=== PATIENT | female | born 1970 | race Caucasian/White ===

== ENCOUNTER 2024-04-24 19:13 | Inpatient (IN) | payer OTHER ==
[~2024-04-24] VITALS: Ht 165.1 cm; Wt 78.6 kg
[2024-04-24] MEDS: NALOXONE HCL 0.4MG/ML 1ML VIAL IV ONE ×3 (19:58→21:11)
[2024-04-24] MEDS: SODIUM CHLORIDE 0.9% 1000ML BAG (SEPSIS BOLUS) IV ONE (20:06)
[2024-04-24] MEDS: PIPERACILLIN/TAZO 3.375G/50ML 50 ML IV ONE (20:11)
[2024-04-24 20:13] LABS: BASOPHILS % 0.2 % (0.0-2.0); EOSINOPHILS % 0.1 % (0.0-5.0); HEMATOCRIT. 40.9 % (36.0-48.0); HEMOGLOBIN. 13.1 g/dL (12.0-16.0); LYMPHOCYTES % 12.3 % (20.0-50.0); MEAN CORPUSCULAR HEMOGLOBIN 27.9 pg (28.0-32.0); MEAN CORPUSCULAR HGB CONC 31.9 g/dL (31.0-37.0); MEAN CORPUSCULAR VOLUME 87.4 fL (81.0-99.0); MEAN PLATELET VOLUME 9.9 fl (7.4-10.4); MONOCYTES % 6.7 % (2.0-8.0); NEUTROPHILS % 80.7 % (40.0-76.0); PLATELET 231 x1000/uL (130-400); RED BLOOD CELL COUNT 4.68 mill/uL (4.2-5.4); RED CELL DISTRIBUTION WIDTH 16.6 % (11.6-14.6); WHITE BLOOD COUNT 9.2 x1000/uL (4.5-11.0)
[2024-04-24 20:20] LABS: CHLORIDE 113 mEq/L (98-107); POTASSIUM 3.8 mEq/L (3.5-5.1); SODIUM 146 mEq/L (136-145)
[2024-04-24 20:21] LABS: CALCIUM 9.3 mg/dL (8.7-10.4); CARBON DIOXIDE 21 mEq/L (21-32)
[2024-04-24] MEDS: VANCOMYCIN 1G PREMIX 200 ML IV ONE (20:21)
[2024-04-24 20:24] LABS: PROTHROMBIN TIME 11.1 sec (9.6-11.0)
[2024-04-24 20:26] LABS: GLUCOSE 175 mg/dL (70-105); UREA NITROGEN BLOOD 16 mg/dL (9-23)
[2024-04-24 20:27] LABS: ETHANOL BLOOD < 10 mg/dL (<10); HCG SCREEN NEGATIVE
[2024-04-24 20:28] LABS: ALANINE AMINOTRANSFERASE 99 IU/L (10-49); ASPARTATE AMINOTRANSFERASE 138 IU/L (<34); BILIRUBIN TOTAL 0.4 mg/dL (0.1-1.0)
[2024-04-24 20:29] LABS: PROTEIN TOTAL 6.5 g/dL (6.0-8.3)
[2024-04-24 20:32] LABS: TROPONIN I HIGH SENSITIVITY 172 ng/L (3.0-34)
[2024-04-24 22:04] VITALS: PULSE 99; RESP 18; O2SAT 96
[2024-04-24] MEDS: ETOMIDATE 2MG/ML 10ML VIAL IV ONE (22:16)
[2024-04-24] MEDS: ROCURONIUM BROMIDE 10MG/ML VIAL 5ML IV ONE (22:17)
[2024-04-24 22:28] LABS: BG BASE EXCESS 1.3 mmol/L (-2.0-3.0); BG FRACTION INSPIRED OXYGEN 100; BG HCO3 ACT 25.4 mmol/L (21.0-28.0); BG PCO2 38.3 mmHg (32.0-45.0); BG PH 7.439 (7.350-7.450); BG PO2 83.8 mmHg (83.0-108.0); BG SAMPLE SITE RIGHT RADIAL; BG VENT MODE VENT - AC
[2024-04-24 23:20] VITALS: RESP 18
[2024-04-24] MEDS ORDERED: NOREPINEPHRINE 8MG/250ML PMX 250 ML IV PRN (23:45)
[2024-04-24] MEDS: IPRATROPIUM/ALBUTEROL 0.5-3(2.5)MG/3ML NEB HHN SCH (23:45)
[2024-04-24] MEDS ORDERED: MIDAZOLAM 100MG/100ML PMX 100 ML IV PRN (23:45)
[2024-04-24] MEDS ORDERED: DOCUSATE SODIUM 100MG CAPSULE PO PRN (23:45)
[2024-04-24] MEDS ORDERED: SODIUM CHLORIDE 0.45% 1,000 ML IV SCH (23:45)
[2024-04-24] MEDS ORDERED: GUAIFENESIN 200MG/10ML SUGAR FREE UDC PO PRN (23:45)
[2024-04-24] MEDS ORDERED: ACETAMINOPHEN 325MG TABLET PO PRN (23:45)
[2024-04-24] MEDS ORDERED: LORAZEPAM 2MG/ML INJ IV PRN (23:45)
[2024-04-24 23:54] VITALS: PULSE 128; RESP 25; O2SAT 95
[2024-04-25] VITALS (92 sets, daily range): BP systolic 114–202; BP diastolic 54–139; PULSE 97–136; RESP 13–26; TEMP 36.78072–37.94748; O2SAT 98–100
[2024-04-25] MEDS ORDERED: DEXTROSE 50% WATER 50ML SYRINGE IV PRN (01:15)
[2024-04-25] MEDS: HYDRALAZINE 20MG/ML VIAL IV PRN (01:51)
[2024-04-25] MEDS: PIPERACILLIN/TAZO 3.375G/50ML 50 ML IV SCH (01:51)
[2024-04-25] MEDS: DEXT 5%/0.45% NACL 1000ML 1,000 ML IV SCH (01:52)
[2024-04-25 02:35] LABS: CLARITY URINE CLOUDY (CLEAR); COLOR URINE DARK YELLOW (YELLOW); GLUCOSE URINE 1+ (NEGATIVE); KETONES URINE TRACE (NEGATIVE); LEUKOCYTE ESTERASE URINE NEGATIVE (NEGATIVE); NITRITE URINE NEGATIVE (NEGATIVE); OCCULT BLOOD URINE 2+ (NEGATIVE); PH URINE 5.5 (4.5-8.0); PROTEIN URINE 3+ (NEGATIVE); SPECIFIC GRAVITY URINE 1.031 (1.005-1.030)
[2024-04-25 02:47] LABS: *AMPHETAMINES SCREEN URINE NEGATIVE (NEGATIVE); *BARBITURATES SCREEN URINE NEGATIVE (NEGATIVE); *BENZODIAZEPINES SCREEN URINE NEGATIVE (NEGATIVE); *COCAINE SCREEN URINE NEGATIVE (NEGATIVE)
[2024-04-25 02:48] LABS: CANNABINOID URINE SCREEN NEGATIVE (NEGATIVE); ECSTASY MDMA SCREEN URINE NEGATIVE (NEGATIVE); METHADONE URINE SCREEN NEGATIVE (NEGATIVE); OPIATES URINE SCREEN NEGATIVE (NEGATIVE); PHENCYCLIDINE URINE SCREEN NEGATIVE (NEGATIVE)
[2024-04-25 02:52] LABS: HYALINE CASTS URINE 0-5 /lpf; WHITE BLOOD CELL CASTS URINE 0-5 /lpf
[2024-04-25 02:53] LABS: BACTERIA URINE TRACE; SQUAMOUS EPITHELIAL CELL URINE FEW /lpf (RARE/1+); WBC URINE 0-2 /hpf (0-2)
[2024-04-25] MEDS ORDERED: CLONIDINE 0.1MG TABLET PO PRN (05:45)
[2024-04-25] MEDS: PROPOFOL 10MG/ML 100ML 100 ML IV PRN ×2 (05:55→23:57)
[2024-04-25] MEDS: HYDRALAZINE HCL 10MG TABLET PO SCH (06:01)
[2024-04-25 06:02] LABS: AMMONIA < 17 uMol/L (<32)
[2024-04-25 06:05] LABS: BASOPHILS % 0.4 % (0.0-2.0); HEMATOCRIT. 38.9 % (36.0-48.0); HEMOGLOBIN. 12.4 g/dL (12.0-16.0); LYMPHOCYTES % 12.3 % (20.0-50.0); MEAN CORPUSCULAR HEMOGLOBIN 27.4 pg (28.0-32.0); MEAN CORPUSCULAR HGB CONC 31.8 g/dL (31.0-37.0); MEAN CORPUSCULAR VOLUME 86.1 fL (81.0-99.0); MEAN PLATELET VOLUME 10.1 fl (7.4-10.4); MONOCYTES % 9.2 % (2.0-8.0); NEUTROPHILS % 78.1 % (40.0-76.0); PLATELET 223 x1000/uL (130-400); RED BLOOD CELL COUNT 4.52 mill/uL (4.2-5.4); RED CELL DISTRIBUTION WIDTH 16.5 % (11.6-14.6); WHITE BLOOD COUNT 13.3 x1000/uL (4.5-11.0)
[2024-04-25 06:06] LABS: CARBON DIOXIDE 22 mEq/L (21-32); CHLORIDE 113 mEq/L (98-107); POTASSIUM 3.9 mEq/L (3.5-5.1); SODIUM 143 mEq/L (136-145)
[2024-04-25 06:07] LABS: CALCIUM 8.8 mg/dL (8.7-10.4)
[2024-04-25 06:12] LABS: CREATINE KINASE MB FRACTION 18.2 ng/mL (0.5-3.6); CREATININE 0.9 mg/dL (0.6-1.0); GLUCOSE 200 mg/dL (70-105); TRIGLYCERIDE 233 mg/dL (0-150); UREA NITROGEN BLOOD 18 mg/dL (9-23)
[2024-04-25 06:13] LABS: LDL CHOLESTEROL 103 mg/dL (5-100)
[2024-04-25 06:14] LABS: CHOLESTEROL 172 mg/dL (<200); HDL CHOLESTEROL 42 mg/dL (>65)
[2024-04-25 06:15] LABS: T4 FREE 1.29 ng/dL (0.89-1.76); THYROID STIMULATING HORMONE < 0.10 uIU/mL (0.55-4.78)
[2024-04-25] MEDS: ACETAMINOPHEN 325MG TABLET PO PRN (07:31)
[2024-04-25 08:00] LABS: BG CARBOXYHEMOGLOBIN 0.7 % (0.5-1.5); BG DEOXYHEMOGLOBIN 0.2 % (0.0-5.0); BG FRACTION INSPIRED OXYGEN 50; BG HCO3 ACT 19.1 mmol/L (21.0-28.0); BG METHEMOGLOBIN 0.3 % (0.5-1.5); BG OXYGEN SATURATION 99.8 % (94.0-98.0); BG OXYHEMOGLOBIN 98.8 % (94.0-98.0); BG PCO2 26.6 mmHg (32.0-45.0); BG PH 7.475 (7.350-7.450); BG PO2 214.6 mmHg (83.0-108.0); BG SAMPLE SITE RIGHT RADIAL; BG TOTAL HEMOGLOBIN 13.3 g/dL (12.0-16.0); BG VENT MODE VENT - AC/VC
[2024-04-25] MEDS: BLOOD SUGAR DIAGNOSTIC STRIP TEST SCH (08:26)
[2024-04-25] MEDS: ENOXAPARIN 80MG/0.8ML SYR SUBCUT SCH (08:31)
[2024-04-25] MEDS: AMLODIPINE 10MG TABLET PO SCH (08:32)
[2024-04-25] MEDS: MICONAZOLE NITRATE 2% OINT 71GM TOP SCH (08:33)
[2024-04-25] MEDS: INSULIN LISPRO 100 UNITS/ML SUBCUT SCH (08:33)
[2024-04-25] MEDS ORDERED: ENOXAPARIN 40MG/0.4ML SYR SUBCUT SCH (09:00)
[2024-04-25] MEDS: METOPROLOL SUCCINATE 50MG ER TABLET PO SCH (10:19)
[2024-04-25 10:27] LABS: T4 FREE 1.3 ng/dL (0.89-1.76)
[2024-04-25] MEDS ORDERED: DICL75TA5 PO (10:36)
[2024-04-25] MEDS ORDERED: METF-874 MT (10:38)
[2024-04-25] MEDS ORDERED: TOPUD PO ×2 (10:40→10:44)
[2024-04-25] MEDS ORDERED: TRAZ150T78 PO (10:43)
[2024-04-25] MEDS ORDERED: ROSU40TA PO ×2 (10:45→10:53)
[2024-04-25] MEDS ORDERED: AMOX1TAB16 MT (10:46)
[2024-04-25] MEDS ORDERED: METF-873 PO (10:47)
[2024-04-25] MEDS ORDERED: CYCL25PO15 MC (10:50)
[2024-04-25] MEDS ORDERED: CELE-116 MT (10:50)
[2024-04-25] MEDS ORDERED: GLIP5TAB22 MT (10:52)
[2024-04-25] MEDS ORDERED: BENZ200C52 MT (10:52)
[2024-04-25] MEDS ORDERED: ONDA8TAB59 PO (10:54)
[2024-04-25 14:43] LABS: PHOSPHORUS 4.3 mg/dL (2.5-4.9)
[2024-04-25 16:23] LABS: CREATINE KINASE MB FRACTION 9.8 ng/mL (0.5-3.6)
[2024-04-25 16:31] LABS: FOLIC ACID (FOLATE) SERUM > 20.00 ng/mL (>5.38); VITAMIN B12 SERUM 1438 pg/mL (211-911)
[2024-04-25] MEDS: LEVETIRACETAM 500MG PREMIX 100 ML IV SCH (20:57)
[2024-04-25] MEDS: THIAMINE HCL 100 MG in SODIUM CHLORIDE 0.9% 49 ML IV NR (22:37)
[2024-04-26] VITALS (72 sets, daily range): BP systolic 87–195; BP diastolic 43–94; PULSE 88–127; RESP 11–27; TEMP 36.9474–38.11416; O2SAT 97–100
[2024-04-26] MEDS: ONDANSETRON HCL 4MG/2ML INJ IV PRN (03:24)
[2024-04-26 05:33] LABS: BASOPHILS % 0.5 % (0.0-2.0); EOSINOPHILS % 0.1 % (0.0-5.0); HEMATOCRIT. 34.4 % (36.0-48.0); HEMOGLOBIN. 11.2 g/dL (12.0-16.0); LYMPHOCYTES % 17.7 % (20.0-50.0); MEAN CORPUSCULAR HGB CONC 32.5 g/dL (31.0-37.0); MEAN CORPUSCULAR VOLUME 86.2 fL (81.0-99.0); MEAN PLATELET VOLUME 9.9 fl (7.4-10.4); MONOCYTES % 9.6 % (2.0-8.0); NEUTROPHILS % 72.1 % (40.0-76.0); PLATELET 243 x1000/uL (130-400); RED BLOOD CELL COUNT 3.99 mill/uL (4.2-5.4); RED CELL DISTRIBUTION WIDTH 16.9 % (11.6-14.6); WHITE BLOOD COUNT 8.8 x1000/uL (4.5-11.0)
[2024-04-26 05:40] LABS: POTASSIUM 3.8 mEq/L (3.5-5.1)
[2024-04-26 05:42] LABS: CALCIUM 8.7 mg/dL (8.7-10.4)
[2024-04-26 05:46] LABS: CREATININE 1.1 mg/dL (0.6-1.0)
[2024-04-26 08:32] LABS: BG CARBOXYHEMOGLOBIN 0.9 % (0.5-1.5); BG DEOXYHEMOGLOBIN 0.9 % (0.0-5.0); BG FRACTION INSPIRED OXYGEN 40; BG HCO3 ACT 23.3 mmol/L (21.0-28.0); BG METHEMOGLOBIN 0.3 % (0.5-1.5); BG OXYGEN SATURATION 99.1 % (94.0-98.0); BG OXYHEMOGLOBIN 97.9 % (94.0-98.0); BG PCO2 37.2 mmHg (32.0-45.0); BG PH 7.414 (7.350-7.450); BG PO2 147.8 mmHg (83.0-108.0); BG SAMPLE SITE RIGHT RADIAL; BG TOTAL HEMOGLOBIN 11.5 g/dL (12.0-16.0); BG VENT MODE VENT - AC
[2024-04-26] MEDS: ASPIRIN 81MG TABLET PO SCH (09:11)
[2024-04-26] MEDS ORDERED: DEXMEDETOMIDINE 400 MCG/100 ML 100 ML IV PRN (10:00)
[2024-04-26 11:02] LABS: TROPONIN I HIGH SENSITIVITY 1387 ng/L (3.0-34)
[2024-04-26 12:57] LABS: BG BASE EXCESS -0.5 mmol/L (-2.0-3.0); BG CARBOXYHEMOGLOBIN 0.7 % (0.5-1.5); BG DEOXYHEMOGLOBIN 2.3 % (0.0-5.0); BG FRACTION INSPIRED OXYGEN 35; BG HCO3 ACT 23.7 mmol/L (21.0-28.0); BG METHEMOGLOBIN 0.3 % (0.5-1.5); BG OXYGEN SATURATION 97.7 % (94.0-98.0); BG OXYHEMOGLOBIN 96.7 % (94.0-98.0); BG PCO2 36.8 mmHg (32.0-45.0); BG PH 7.426 (7.350-7.450); BG PO2 98.8 mmHg (83.0-108.0); BG SAMPLE SITE LEFT BRACHIAL; BG TOTAL HEMOGLOBIN 10.9 g/dL (12.0-16.0); BG VENT MODE VENT - CPAP
[2024-04-26 18:05] LABS: CREATINE KINASE 205 IU/L (34-145)
[2024-04-26] MEDS: ACETAMINOPHEN 650MG/20.3ML UDC NG PRN (19:56)
[2024-04-26] MEDS: LORAZEPAM 2MG/ML INJ IV NR (20:25)
[2024-04-26] MEDS: ATORVASTATIN CALCIUM 40MG TABLET PO SCH (21:35)
[2024-04-26] MEDS: CLONIDINE 0.1MG TABLET PO PRN (23:19)
[2024-04-27] VITALS (76 sets, daily range): BP systolic 98–184; BP diastolic 56–105; PULSE 77–114; RESP 12–32; TEMP 36.78072–37.2252; O2SAT 86–100
[2024-04-27] MEDS: LORAZEPAM 2MG/ML INJ IV SCH (04:20)
[2024-04-27 06:27] LABS: BASOPHILS % 0.4 % (0.0-2.0); EOSINOPHILS % 2.9 % (0.0-5.0); HEMOGLOBIN. 10.3 g/dL (12.0-16.0); LYMPHOCYTES % 21.6 % (20.0-50.0); MEAN CORPUSCULAR HGB CONC 32.2 g/dL (31.0-37.0); MEAN CORPUSCULAR VOLUME 86.9 fL (81.0-99.0); MEAN PLATELET VOLUME 9.7 fl (7.4-10.4); MONOCYTES % 9.4 % (2.0-8.0); NEUTROPHILS % 65.7 % (40.0-76.0); PLATELET 198 x1000/uL (130-400); RED BLOOD CELL COUNT 3.68 mill/uL (4.2-5.4); RED CELL DISTRIBUTION WIDTH 16.3 % (11.6-14.6); WHITE BLOOD COUNT 7.3 x1000/uL (4.5-11.0)
[2024-04-27 06:36] LABS: POTASSIUM 3.7 mEq/L (3.5-5.1)
[2024-04-27 06:37] LABS: CALCIUM 8.6 mg/dL (8.7-10.4)
[2024-04-27] MEDS ORDERED: HYDRALAZINE HCL 10MG TABLET PO SCH (14:00)
[2024-04-27] MEDS: HALOPERIDOL LACTATE 5MG/ML VIAL IM PRN ×2 (14:18→17:49)
[2024-04-27] MEDS: HYDRALAZINE HCL 50MG TABLET PO SCH (14:18)
[2024-04-27] MEDS ORDERED: HALOPERIDOL 5MG TABLET PO SCH (14:30)
[2024-04-27] MEDS: LORAZEPAM 2MG/ML INJ IV NR (22:53)
[2024-04-28] VITALS (51 sets, daily range): BP systolic 100–213; BP diastolic 57–189; PULSE 79–120; RESP 12–31; TEMP 36.55848–37.55856; O2SAT 90–100
[2024-04-28 07:51] LABS: CHLORIDE 106 mEq/L (98-107); POTASSIUM 3.8 mEq/L (3.5-5.1); SODIUM 138 mEq/L (136-145)
[2024-04-28 07:52] LABS: CALCIUM 9.1 mg/dL (8.7-10.4); CARBON DIOXIDE 27 mEq/L (21-32)
[2024-04-28 07:54] LABS: HEMATOCRIT 33.5 % (36.0-48.0); HEMOGLOBIN 10.8 g/dL (12.0-16.0); MEAN CORPUSCULAR HEMOGLOBIN 27.6 pg (28.0-32.0); MEAN CORPUSCULAR HGB CONC 32.3 g/dL (31.0-37.0); MEAN CORPUSCULAR VOLUME 85.4 fL (81.0-99.0); PLATELET 231 x1000/uL (130-400); RED BLOOD CELL COUNT 3.93 mill/uL (4.2-5.4); RED CELL DISTRIBUTION WIDTH 16.2 % (11.6-14.6); WHITE BLOOD COUNT 8.3 x1000/uL (4.5-11.0)
[2024-04-28 07:57] LABS: CREATININE 0.8 mg/dL (0.6-1.0); GLUCOSE 166 mg/dL (70-105); UREA NITROGEN BLOOD 14 mg/dL (9-23)
[2024-04-28] MEDS: METOPROLOL SUCCINATE 25MG ER TABLET PO SCH (08:53)
[2024-04-28] MEDS: NYSTATIN 100,000 UNITS/GM CREAM 15GM TOP SCH (22:58)
[2024-04-29] VITALS (13 sets, daily range): BP systolic 137–165; BP diastolic 64–105; PULSE 86–97; RESP 14–24; TEMP 36.6696–37.2252; O2SAT 93–99
[2024-04-29 05:20] LABS: BASOPHILS % 0.3 % (0.0-2.0); HEMATOCRIT. 32.4 % (36.0-48.0); HEMOGLOBIN. 10.3 g/dL (12.0-16.0); LYMPHOCYTES % 26.5 % (20.0-50.0); MEAN CORPUSCULAR HEMOGLOBIN 27.4 pg (28.0-32.0); MEAN CORPUSCULAR HGB CONC 31.8 g/dL (31.0-37.0); MEAN CORPUSCULAR VOLUME 86.1 fL (81.0-99.0); MEAN PLATELET VOLUME 9.8 fl (7.4-10.4); MONOCYTES % 8.4 % (2.0-8.0); NEUTROPHILS % 58.8 % (40.0-76.0); PLATELET 234 x1000/uL (130-400); RED BLOOD CELL COUNT 3.77 mill/uL (4.2-5.4); RED CELL DISTRIBUTION WIDTH 16.1 % (11.6-14.6); WHITE BLOOD COUNT 6.3 x1000/uL (4.5-11.0)
[2024-04-29 06:14] LABS: CHLORIDE 106 mEq/L (98-107); POTASSIUM 3.9 mEq/L (3.5-5.1); SODIUM 138 mEq/L (136-145)
[2024-04-29 06:15] LABS: CARBON DIOXIDE 28 mEq/L (21-32)
[2024-04-29 06:16] LABS: CALCIUM 8.8 mg/dL (8.7-10.4)
[2024-04-29 06:20] LABS: CREATININE 0.8 mg/dL (0.6-1.0)
[2024-04-29 06:21] LABS: GLUCOSE 169 mg/dL (70-105); UREA NITROGEN BLOOD 13 mg/dL (9-23)
[2024-04-29] MEDS: METOPROLOL SUCCINATE 50MG ER TABLET PO SCH (09:50)
[2024-04-29] MEDS ORDERED: ONDANSETRON HCL 4MG TABLET PO PRN (12:00)
[2024-04-29] MEDS: AMOXICILLIN/POTASSIUM CLAVULANATE 500/125MG TAB PO SCH (21:28)
[2024-04-30] VITALS: BP 158/95; PULSE 91; RESP 17; TEMP 36.6696; TEMP 36.66960; O2SAT 98
[2024-04-30] MEDS ORDERED: LEVO125T8 PO (08:10)
[2024-04-30] MEDS ORDERED: LEVO200T8 PO (08:10)
== END 2024-04-30 03:40 | disposition home or self-care (01) | DRG 871 ==
LOC: ER 19:13 → CVICU 22:14 → EDBD 22:14 → EDBEDREQ 22:19 → EDBEDREQTM 22:19 → EDBEDREQSVC 22:19 → 5EST 04-28 16:37
PROVIDERS: ADMIT Internal Medicine; ATTEND Internal Medicine
PROC: 4A00X4Z Measurement of Central Nervous Electrical Activity, External Approach (ICD-10-PCS; principal; 2024-04-25)
PROC: 0BH17EZ Insertion of Endotracheal Airway into Trachea, Via Natural or Artificial Opening (ICD-10-PCS; 2024-04-25)
PROC: 5A1945Z Respiratory Ventilation, 24-96 Consecutive Hours (ICD-10-PCS; 2024-04-25)
PROC: 06HY33Z Insertion of Infusion Device into Lower Vein, Percutaneous Approach (ICD-10-PCS; 2024-04-25)
PROC: B54BZZA Ultrasonography of Right Lower Extremity Veins, Guidance (ICD-10-PCS; 2024-04-25)
DX: A41.9 Sepsis, unspecified organism (principal); G92.8 Other toxic encephalopathy; J96.01 Acute respiratory failure with hypoxia; I21.A1 Myocardial infarction type 2; E87.20 Acidosis, unspecified; N39.0 Urinary tract infection, site not specified; N17.9 Acute kidney failure, unspecified; B37.2 Candidiasis of skin and nail; D53.9 Nutritional anemia, unspecified; E78.00 Pure hypercholesterolemia, unspecified; E03.9 Hypothyroidism, unspecified; F32.A Depression, unspecified; R79.89 Other specified abnormal findings of blood chemistry; E87.8 Other disorders of electrolyte and fluid balance, not elsewhere classified; Z20.822 Contact with and (suspected) exposure to COVID-19; R74.01 Elevation of levels of liver transaminase levels; R74.8 Abnormal levels of other serum enzymes; R16.0 Hepatomegaly, not elsewhere classified; T40.421A Poisoning by tramadol, accidental (unintentional), initial encounter; I10 Essential (primary) hypertension; F32.9 Major depressive disorder, single episode, unspecified; E11.65 Type 2 diabetes mellitus with hyperglycemia; I25.2 Old myocardial infarction; Z79.84 Long term (current) use of oral hypoglycemic drugs; Z91.148 Patient's other noncompliance with medication regimen for other reason; Z98.84 Bariatric surgery status; Y92.89 Other specified places as the place of occurrence of the external cause; Z79.899 Other long term (current) drug therapy
CPT/HCPCS: 36415; 36600; 71045; 76700; 80048; 80053; 80061; 80305; 80320; 81003; 82140; 82375; 82550; 82553; 82607; 82746; 82805; 82962; 83036; 83605; 83735; 83880; 84100; 84145; 84436; 84439; 84443; 84450; 84460; 84478; 84484; 84703; 85025; 85027; 85379; 86850; 86900; 87070; 87077; 87420; 87426; 93005; 93306; 93970; 94003; 94640; 99291; J0360; J1630; J1650; J1815; J1953; J2060; J2310; J2405; J2543; J2704; J3370; J3411; J3490; J7030; G0480